=== PATIENT | female | born 1935 | race Caucasian/White ===

== ENCOUNTER 2023-07-23 17:36 | Emergency (ER) | payer MEDICARE, BC ==
[2023-07-23 17:57] VITALS: BP 137/84; PULSE 72; RESP 18; TEMP 98.2
--- NOTE | 2023-07-23 18:28 | ED ---
Extremity Problem HPI - General Chief complaint: Extremity Problem,Nontraumatic Stated complaint: right hand pain Time Seen by Provider: 07/23/23 18:00 Source: patient, RN notes reviewed, old records reviewed Mode of arrival: ambulatory Limitations: no limitations - History of Present Illness Initial comments: This is a 87-year-old female to the emergency department for evaluation. Patient is unable to provide history secondary severe dementia history obtained from family at bedside are concerned over right wrist swelling. Patient received diagnosed with DVT of the lower extremities and placed on anticoagulation MD Complaint: extremity pain, extremity swelling, joint swelling, other (Right wrist) -: days(s) Location: right, upper extremity (Right wrist) History of Same: No Radiation: none Consistency: constant Improves with: nothing Worsens with: nothing Associated Symptoms: denies other symptoms - Related Data Home Medications Medication Instructions Recorded Confirmed ALPRAZolam [Xanax] 0.5 mg PO BID PRN 05/31/23 05/31/23 Alendronate Sodium [Fosamax] 70 mg PO WE 05/31/23 05/31/23 Escitalopram [Lexapro] 20 mg PO DAILY 05/31/23 05/31/23 Loratadine [Claritin] 10 mg PO DAILY 05/31/23 05/31/23 Losartan [Cozaar] 25 mg PO DAILY 05/31/23 05/31/23 Melatonin(Unknown Dose) 1 tab PO HS 05/31/23 05/31/23 Omeprazole 20 mg PO DAILY 05/31/23 05/31/23 Previous Rx's Medication Instructions Recorded Apixaban [Eliquis Starter Pack 5 - 10 mg PO DIRECTED 30 Days 06/01/23 (for VTE)] #1 each Allergies Allergy/AdvReac Type Severity Reaction Status Date / Time niacin Allergy Rash/Hives Verified 05/31/23 17:48 Sulfa (Sulfonamide Allergy Anaphylaxis Verified 05/31/23 17:48 Antibiotics) Review of Systems ROS Statement: Those systems with pertinent positive or pertinent negative responses have been documented in the HPI. ROS Other: All systems not noted in ROS Statement are negative. Past Medical History Past Medical History: Dementia, Deep Vein Thrombosis (DVT), Memory Impairment Past Surgical History: Appendectomy, Hernia Repair, Hysterectomy Past Psychological History: No Psychological Hx Reported Smoking Status: Never smoker Past Alcohol Use History: None Reported Past Drug Use History: None Reported General Exam Limitations: no limitations General appearance: alert, in no apparent distress Head exam: Present: atraumatic, normocephalic, normal inspection Eye exam: Present: normal appearance, PERRL, EOMI. Absent: scleral icterus, conjunctival injection, periorbital swelling ENT exam: Present: normal exam, mucous membranes moist Neck exam: Present: normal inspection. Absent: tenderness, meningismus, lymphadenopathy Respiratory exam: Present: normal lung sounds bilaterally. Absent: respiratory distress, wheezes, rales, rhonchi, stridor Cardiovascular Exam: Present: regular rate, normal rhythm, normal heart sounds. Absent: systolic murmur, diastolic murmur, rubs, gallop, clicks GI/Abdominal exam: Present: soft, normal bowel sounds. Absent: distended, tenderness, guarding, rebound, rigid Extremities exam: Present: normal inspection, full ROM, normal capillary refill, other (Right wrist is swollen with good pulses). Absent: tenderness, pedal edema, joint swelling, calf tenderness Back exam: Present: normal inspection Neurological exam: Present: alert, oriented X3, CN II-XII intact Psychiatric exam: Present: normal affect, normal mood Skin exam: Present: warm, dry, intact, normal color. Absent: rash Course Vital Signs 07/23/23 17:38 Temperature 98.2 F Pulse Rate 72 Respiratory 18 Rate Blood Pressure 137/84 O2 Sat by Pulse 98 Oximetry - Reevaluation(s) Reevaluation #1: 07/23/23 Medical records reviewed Reevaluation #2: 07/23/23 Patient symptoms unchanged Reevaluation #3: 07/23/23 Family okay with reassurance, normal pulses and patient is on anticoagulation Reevaluation #4: Was pt. sent in by a medical professional or institution (, PA, SALES ORDER SPECIALIST, urgent care, hospital, or senior care...) When possible be specific @ -no Did you speak to anyone other than the patient for history (EMS, parent, family, police, friend...)? What history was obtained from this source @ -no Did you review nursing and triage notes (agree or disagree)? Why? @ -agree Are old charts reviewed (outside hosp., previous admission, EMS record, old EKG, old radiological studies, urgent care reports/EKG's, senior care records)? Report findings @ -yes Differential Diagnosis (chest pain, altered mental status, abdominal pain women, abdominal pain men, vaginal bleeding, weakness, fever, dyspnea, syncope, headache, dizziness, GI bleed, back pain, seizure, CVA, palpatations, mental health, musculoskeletal)? @ -prior EKG interpreted by me (3pts min.). @ -no X-rays interpreted by me (1pt min.). @ -no CT interpreted by me (1pt min.). @ -no U/S interpreted by me (1pt. min.). @ -no What testing was considered but not performed or refused? (CT, X-rays, U/S, labs)? Why? @ -none What meds were considered but not given or refused? Why? @ -none Did you discuss the management of the patient with other professionals (professionals i.e. , PA, SALES ORDER SPECIALIST, lab, RT, psych nurse, social sciences instructor, product engineer, teacher, chief quality officer, director of casework)? Give summary @ -no Was smoking cessation discussed for >3mins.? @ -no Was critical care preformed (if so, how long)? @ -no Were there social determinants of health that impacted care today? How? (Homelessness, low income, unemployed, alcoholism, drug addiction, transportation, low edu. Level, literacy, decrease access to med. care, skilled nursing, rehab)? @ -none Was there de-escalation of care discussed even if they declined (Discuss DNR or withdrawal of care, Hospice)? DNR status @ -no What co-morbidities impacted this encounter? (DM, HTN, Smoking, COPD, CAD, Cancer, CVA, ARF, Chemo, Hep., AIDS, mental health diagnosis, sleep apnea, m orbid obesity)? @ -none Was patient admitted / discharged? Hospital course, mention meds given and route, prescriptions, significant lab abnormalities, going to OR and other pertinent info. @ - 87 female to the emergency department with right wrist pain and swelling. Patient is unable provide history unsure if she has pain but significantly swollen to the right wrist no concern for DVT patient is on anticoagulation currently, good pulses patient can be discharged home Discharge Undiagnosed new problem with uncertain prognosis? @ -no Drug Therapy requiring intensive monitoring for toxicity (Heparin, Nitro, Insulin, Cardizem)? @ -no Were any procedures done? @ -no Diagnosis/symptom? @ -Right wrist edema Acute, or Chronic, or Acute on Chronic? @ -Acute Uncomplicated (without systemic symptoms) or Complicated (systemic symptoms)? @ -Complicated Side effects of treatment? @ -no Exacerbation, Progression, or Severe Exacerbation? @ -exacerbation Poses a threat to life or bodily function? How? (Chest pain, [place], [place], pneumonia, PE, COPD, DKA, ARF, appy, cholecystitis, CVA, Diverticulitis, Homicidal, Suicidal, threat to staff... and all critical care pts) @ -yes 07/31/23 21:40 Medical Decision Making - Medical Decision Making 87 female DF for evaluation of right wrist pain and edema. Confusion. Patient has no complaints herself family concerned over swelling of the right wrist, unsure cause limb does not appear to be in throat, patient can be discharged home Disposition Clinical Impression: Right wrist effusion Disposition: HOME SELF-CARE Condition: Good Instructions (If sedation given, give patient instructions): Edema (ED) Is patient prescribed a controlled substance at d/c from ED?: No Referrals: Nallely Glasgow MD [Primary Care Provider] - 1-2 days Time of Disposition: 18:30
== END 2023-07-23 19:38 | disposition home or self-care (01) ==
LOC: EC 17:36
DX: M25.431 Effusion, right wrist (principal); Z86.718 Personal history of other venous thrombosis and embolism; Z88.2 Allergy status to sulfonamides; Z88.8 Allergy status to other drugs, medicaments and biological substances; Z79.899 Other long term (current) drug therapy
CPT/HCPCS: 99283